=== PATIENT | female | born 1970 | race African-American/Black ===

== ENCOUNTER → 2018-12-21 | Day surgery (SDC) | payer OTHER ==
--- NOTE | 2018-12-20 10:49 | Diagnostic Imaging Report ---
EXAMINATION: CHEST 2 VIEWS INDICATION: Pre-operative COMPARISON: None FINDINGS: LINES/TUBES:Drainage catheter over the left upper quadrant. LUNGS:The lungs are well-inflated. No focal consolidation or pulmonary edema. PLEURA:No pleural effusion or pneumothorax. MEDIASTINUM:The cardiomediastinal silhouette appears normal in size and shape. BONES/SOFT TISSUES:No acute osseous injury. ABDOMEN:No free air under the diaphragm. IMPRESSION: No focal pneumonia or pulmonary edema. Signed by: Liliana Harman MD on 12/20/2018 10:45 AM
[2018-12-20 11:38] LABS: BASOPHILS # (AUTO) 0.1 (0.0-0.1); BASOPHILS % 0.9 % (0.0-1.0); EOSINOPHILS # (AUTO) 0.1 (0.0-0.4); EOSINOPHILS % 1.7 % (0.0-6.0); HEMATOCRIT 44.8 % (34.2-44.1); HEMOGLOBIN 14.6 g/dL (12.0-16.0); LYMPHOCYTES # (AUTO) 2.1 (1.0-3.2); MEAN CORPUSCULAR HEMOGLOBIN 29.4 pg (28-32); MEAN CORPUSCULAR HGB CONC 32.6 g/dL (31-35); MEAN CORPUSCULAR VOLUME 90.3 fL (81-99); MONOCYTES # (AUTO) 0.4 (0.2-0.8); MONOCYTES % 7.1 % (4.4-11.3); NEUTROPHILS # (AUTO) 3.1 (2.1-6.9); PLATELET COUNT 334 x10e3/uL (140-360); RED BLOOD COUNT 4.96 x10e6/uL (3.6-5.1); RED CELL DISTRIBUTION WIDTH 14.5 % (11.7-14.4)
[2018-12-20 11:57] LABS: ANION GAP 17.1 mmol/L (8-16); BLOOD UREA NITROGEN 12 mg/dL (7-26); BUN/CREATININE RATIO 14 (6-25); CALCIUM 10.2 mg/dL (8.4-10.2); CARBON DIOXIDE 24 mmol/L (22-29); CHLORIDE 101 mmol/L (98-107); CREATININE, SERUM 0.84 mg/dL (0.57-1.11); EST GLOMERULAR FILTRATION RATE > 60 ML/MIN (60-); GLUCOSE 77 mg/dL (74-118); POTASSIUM 4.1 mmol/L (3.5-5.1); SODIUM 138 mmol/L (136-145)
[~2018-12-21] MED LIST: BETAMETHASONE DISODIUM PHOS 6 MG/ML VIAL ONE; BUPIVACAINE HCL 0.5% 10ML MPF VIAL INJ ONE; BUPIVACAINE HCL 0.5% INJ 30 ML VIAL INJ ONE; CEFAZOLIN SOD 1 GM/NS 50ML 100 ML IV ONE; DEXAMETHASONE SOD PHOS INJ 4 MG/ML VIAL ONE; FENTANYL CITRATE/PF 100MCG/2 ML INJ ONE; GABAPENTIN300 MG PO; KETOROLAC TROMETHAMINE 30 MG/ML VIAL ONE; LIDOCAINE HCL 1% LOCAL INJ 20 ML VIAL ONE; LIDOCAINE HCL 2% LOCAL INJ 5 ML SDV VIAL INJ ONE; MEPERIDINE HCL INJ 25 MG/ML VIAL ONE; METHOCARBAMOL750 MG PO; MIDAZOLAM HCL 2 MG/2 ML VIAL ONE; ONDANSETRON HCL INJ 2MG/ML 2ML 2 MG/ML VIAL ONE; PROPOFOL IV EMULSION 10 MG/ML 20 ML VIAL ONE; SEVOFLURANE INHAL SOLN 250 ML PEN BTL ONE; TYLENOL WITH C1 EAC1 PO; ZOFRAN8 MG PO
--- OUTSIDE RECORDS SUMMARY | 2018-12-21 05:28 | XMS REPORT ---
Author Author [facility] Address Unknown Phone Unavailable Care Team Providers [facility] Hand Name Role Phone IVY CONN Unavailable Unavailable Problems This patient has no known problems. Allergies, Adverse Reactions, Alerts This patient has no known allergies or adverse reactions. Medications This patient has no known medications. Encounters Start Date/Time End Date/Time Encounter Type Admission Type Attending Clinicians Care Facility Care Department Encounter ID 2018-09-18 10:26:00 2018-09-18 10:26:[address] [facility] [id number] 2018-09-04 12:54:00 2018-09-04 12:54:[address] [facility] [id number] Results Test Description Test Time Test Comments Text Results Atomic Results Result Comments CHEST 2 VIEWS 2018-12-20 10:44:00 [place] [address] Patient Name: ODILIA HARDIN MR #: [id number] : 1970 Age/Sex: 48/F Req #: [id number] Adm Physician: Ordered by: IVY CONN DP Report #: [id number] Location: OR Room/Bed: Procedure: [id number] DX/CHEST 2 VIEWS Exam Date: 12/20/18 Exam Time: 1015 REPORT STATUS: Signed EXAMINATION: CHEST 2 VIEWS INDICATION: Pre-operative COMPARISON: None FINDINGS: LINES/TUBES:Drainage catheter over the left upper quadrant. LUNGS:The lungs are well-inflated. No focal consolidation or pulmonary edema. PLEURA:No pleural effusion or pneumothorax. MEDIASTINUM:The cardiomediastinal silhouette appears normal in size and shape. BONES/SOFT TISSUES:No acute osseous injury. ABDOMEN:No free air under the diaphragm. IMPRESSION: No focal pneumonia or pulmonary edema. Signed by: Erika Harman MD on 12/20/2018 10:45 AM Dictated By: ERIKA HARMAN MD 1045 Transcribed By: WINSOME on 12/20/18 1045 COPY TO: IVY CONN DPM
--- NOTE | 2018-12-21 10:23 | Diagnostic Imaging Report ---
EXAMINATION: FOOT RIGHT AP LAT INDICATION: Postoperative COMPARISON: None FINDINGS: There are postoperative findings involving the first 4 digits of the right foot with wire fixation of the proximal phalanx of the great toe and K wire fixation across the interphalangeal joints and MTP joints of the second through fourth digits. Overlying casting material is fine bony detail. No acute fracture. Alignment is near-anatomic. Nonspecific juxta-articular erosion at the head of the fifth metatarsal. IMPRESSION: Postoperative findings of the first through fourth digits of the right foot as above. Signed by: Liliana Harman MD on 12/21/2018 10:20 AM
[2018-12-21 10:50] VITALS: BP 129/86
--- NOTE | 2018-12-21 15:40 | Operative Report ---
DATE OF PROCEDURE: 12/21/2018 SURGEON: Christoph Argueta DPM PREOPERATIVE DIAGNOSES: 1. Painful hallux valgus deformity, right foot. 2. Painful contracted hammertoes, 2nd digit, right foot. 3. Painful contracted hammertoes, 3rd digit, right foot. 4. Painful contracted hammertoes, 4th digit, right foot. 5. Painful contracted hammertoes, 5th digit, right foot. 6. Painful Tailor's bunion, right foot. 7. Contracted extensor longus tendon, right foot. POSTOPERATIVE DIAGNOSIS: Confirmed. OPERATIVE PROCEDURE: 1. Silver bunionectomy, right foot. 2. Extensor longus tendon lengthening, right foot. 3. Arthroplasties of 2nd digit, right foot. 4. Arthroplasties of 3rd digit, right foot. 5. Arthroplasties of 4th digit, right foot. 6. Arthroplasties of 5th digit, right foot. 7. Tailor's bunionectomy, right foot. 8. Intraoperative use of fluoroscopy. 9. Trigger point shot of cortisone. 10. Application of posterior splint. ANESTHESIA: General. HEMOSTASIS: Pneumatic thigh tourniquet at 350 mmHg. PROCEDURE IN DETAIL: The patient was taken to the operating room and placed on the operating table in supine position. Following induction of general anesthesia by the anesthesiologist, Webril wraps were placed on the patient's right thigh followed by application of right thigh tourniquet. The right lower extremity was then prepped and draped in the usual aseptic manner. Following procedures were performed. Procedure #1: Silver bunionectomy, right foot. Attention was directed to the dorsomedial aspect of the 1st MPJ, where a 6 cm linear incision was performed. Incision was deepened down to the joint capsule. Transverse capsulotomy was performed, exposing the dorsomedial and dorsal exostosis of the 1st metatarsophalangeal joint. Via use of an oscillating saw and rotating bur, dorsal medial exostosis and dorsal exostosis were excised from the operation site in toto. The extensor longus tendon was noted to be severely contracted. Procedure #2: A Z-lengthening procedure was then performed to the extensor longus tendon to allow for proper dropping of the toe. The tendon was then lengthened approximately 1 cm and reapproximated utilizing 3-0 Vicryl in a simple interrupted type fashion. Procedures #3, #4, #5 and #6: Arthroplasties, 2nd, 3rd, 4th and 5th digits with K-wire fixation a 2nd through 4th. Attention was then directed to the dorsal aspect of the above-mentioned toes, where a 3 cm linear incision was performed, incision deepened down to the joint capsule. Transverse capsulotomy was then performed exposing the head of the proximal phalanx. Via the use of an oscillating saw, head of proximal phalanx were excised from the operation site in toto. All rough and bony edges were rasped smooth. The 2nd through 4th toes was still noted to be contracted, so a 0.045 K-wire was introduced crossing the metatarsophalangeal joint to achieve proper anatomical reduction. Procedure #7: Tailor's bunionectomy, right foot. Attention was then directed to the dorsal lateral aspect of the 5th metatarsophalangeal joint, where a 6 cm linear incision was performed, incision deepened down to joint capsule. Transverse capsulotomy was then performed exposing the dorsolateral exostosis of the 1st to 5th metatarsal head. Via the use of an oscillating saw, dorsal lateral exostosis was excised from the operation site in toto. All rough and bony edges were rasped smooth. Procedure #8: Intraoperative use of fluoroscopy was then used to make sure proper alignment fixation was achieved. Closure was then obtained utilizing 3-0 Vicryl, 4-0 Vicryl, and 4-0 nylon for capsule, subcutaneous tissue, and skin respectively. Procedure #9: Trigger point shot of cortisone was then given to the 1st and 4th interspace of the right foot. Then, approximately 15 mL of 0.5% plain Marcaine plus 10 mL of 1% Xylocaine plain plus 2 mL of Celestone Soluspan were then used to achieve local anesthesia of above-mentioned surgical area. Sterile dressing was applied. Upon release of thigh tourniquet, blood hyperemia was noted immediate to all digits patient's right foot. Procedure #10: Application of posterior splint. A properly placed posterior splint was then applied keeping the foot at 90 degrees with respect to the leg to try for any type of postop complications. The patient was then transferred from the OR to recovery room with vital signs stable and neurovascular status intact. No intraoperative complications were encountered. Blood loss from the surgery was minimal. The patient to remain nonweightbearing with the aid of crutches, keep her foot elevated and is to apply an ice pack to the ankle joint area. JAYESH Brumfield/BRANTL /[id number]
== END | disposition home or self-care (01) ==
LOC: OR 05:03
PROVIDERS: ATTEND Podiatrist Foot Surgery
DX: M20.11 Hallux valgus (acquired), right foot (principal); M20.41 Other hammer toe(s) (acquired), right foot; M21.621 Bunionette of right foot; M24.574 Contracture, right foot; E66.9 Obesity, unspecified; Z88.6 Allergy status to analgesic agent; Z01.810 Encounter for preprocedural cardiovascular examination; Z01.812 Encounter for preprocedural laboratory examination; Z01.818 Encounter for other preprocedural examination
CPT/HCPCS: 28110; 28208; 28285 ×4; 28292; 36415; 71046; 73620; 80048; 85025; 93005; J0690; J0720; J1100; J1885; J2001 ×2; J2175; J2250; J2405; J2704; J3010; C1713

== ENCOUNTER 2019-04-09 09:45 | Inpatient (IN) | payer OTHER ==
[2019-04-03 11:17] LABS: BASOPHILS % 0.4 % (0.0-1.0); EOSINOPHILS # (AUTO) 0.1 (0.0-0.4); EOSINOPHILS % 1.8 % (0.0-6.0); HEMATOCRIT 41.6 % (34.2-44.1); HEMOGLOBIN 13.4 g/dL (12.0-16.0); LYMPHOCYTES # (AUTO) 1.9 (1.0-3.2); LYMPHOCYTES % 33.9 % (18.0-39.1); MEAN CORPUSCULAR HEMOGLOBIN 28.6 pg (28-32); MEAN CORPUSCULAR HGB CONC 32.2 g/dL (31-35); MEAN CORPUSCULAR VOLUME 88.9 fL (81-99); MONOCYTES # (AUTO) 0.4 (0.2-0.8); MONOCYTES % 6.6 % (4.4-11.3); NEUTROPHILS # (AUTO) 3.2 (2.1-6.9); NEUTROPHILS % 57.1 % (38.7-80.0); PLATELET COUNT 365 x10e3/uL (140-360); RED BLOOD COUNT 4.68 x10e6/uL (3.6-5.1); RED CELL DISTRIBUTION WIDTH 14.8 % (11.7-14.4)
[~2019-04-09] VITALS: Ht 154.9 cm; Wt 91.6 kg
[~2019-04-09 09:45] MED LIST changes: +ACETAMINOPHEN 1000 MG/100 ML 100 ML IV ONE; -BETAMETHASONE DISODIUM PHOS 6 MG/ML VIAL ONE; -BUPIVACAINE HCL 0.5% 10ML MPF VIAL INJ ONE; -BUPIVACAINE HCL 0.5% INJ 30 ML VIAL INJ ONE; -CEFAZOLIN SOD 1 GM/NS 50ML 100 ML IV ONE; -DEXAMETHASONE SOD PHOS INJ 4 MG/ML VIAL ONE; -FENTANYL CITRATE/PF 100MCG/2 ML INJ ONE; -KETOROLAC TROMETHAMINE 30 MG/ML VIAL ONE; +LIDOCAINE HCL (LTA) 4 ML SOLN ONE; -LIDOCAINE HCL 1% LOCAL INJ 20 ML VIAL ONE; -LIDOCAINE HCL 2% LOCAL INJ 5 ML SDV VIAL INJ ONE; -MEPERIDINE HCL INJ 25 MG/ML VIAL ONE; -MIDAZOLAM HCL 2 MG/2 ML VIAL ONE; -ONDANSETRON HCL INJ 2MG/ML 2ML 2 MG/ML VIAL ONE; -PROPOFOL IV EMULSION 10 MG/ML 20 ML VIAL ONE; +SCOPOLAMINE 1.5 MG PATCH ONE; -SEVOFLURANE INHAL SOLN 250 ML PEN BTL ONE; +SUGAMMADEX SODIUM 200 MG/2 ML VIAL IV ONE
[2019-04-09] MEDS ORDERED: CEFAZOLIN SOD 1 GM/NS 50ML 100 ML IV ONE (10:00)
[2019-04-09] MEDS ORDERED: BUPIVACAINE 0.25% 30ML SDV INJ ONE (13:07)
[2019-04-09] MEDS ORDERED: SCOPOLAMINE 1.5 MG PATCH TOP SCH (14:30)
[2019-04-09] MEDS ORDERED: METOCLOPRAMIDE HCL 10 MG/2ML VIAL ONE (16:06)
[2019-04-09] MEDS ORDERED: ONDANSETRON HCL INJ 2MG/ML 2ML 2 MG/ML VIAL ONE ×2 (16:06→18:32)
[2019-04-09] MEDS ORDERED: LABETALOL HCL 20 ML ONE (16:06)
[2019-04-09] MEDS ORDERED: FENTANYL CITRATE/PF 100MCG/2 ML INJ ONE ×2 (16:23→18:44)
--- NOTE | 2019-04-09 17:37 | History and Physical ---
CHIEF COMPLAINT: "I have weight loss surgery." HISTORY OF PRESENT ILLNESS: This is a 48-year-old woman, who was admitted to [facility] with diagnosis of obesity, BMI of 37 that was complicating underlying hypertension. Today, the patient underwent successful laparoscopic gastric band removal with subsequent sleeve gastrectomy. The surgery was performed by her bariatric surgeon namely, Dr. Yahir Barker. The patient tolerated the surgery well. The patient currently voiced no complaints other than mild pain in the mid epigastric area. The patient denies any nausea or vomiting. REVIEW OF SYSTEMS: GENERAL: Weight is stable. No fever or chills. HEENT: No headaches. No visual changes. CARDIOVASCULAR/RESPIRATORY: No chest pain. No shortness of breath or cough. GI: Mild pain in the mid epigastric area, 5/10 in intensity. No nausea, vomiting, diarrhea, or constipation. : Pierre catheter removed. NEUROMUSCULAR: No limb weakness or numbness. PAST MEDICAL HISTORY: 1. Obesity, BMI of 37. 2. Hypertension. 3. Depression. 4. Arthritis. FAMILY HISTORY: Mother with hypertension and type 2 diabetes mellitus. PAST SURGICAL HISTORY: 1. Laparoscopic gastric band removal today. 2. Laparoscopic sleeve gastrectomy today. 3. Laparoscopic adjustable banding placement in 2009. 4. Tonsillectomy and adenoidectomy. 5. Right hand ganglion cyst resection. 6. Right carpal tunnel surgery. 7. Partial hysterectomy. ALLERGIES: CODEINE AND ASPIRIN. SOCIAL HISTORY: This woman lives with the family. She is employed as a nurse. No history of tobacco history. The patient drinks alcohol socially. MEDICATIONS: 1. Gabapentin 300 mg daily. 2. Duloxetine 60 mg daily. 3. Hydrocodone/acetaminophen 7.5/325 one b.i.d. p.r.n. pain. 4. Meloxicam 7.5 mg daily. 5. Robaxin 500 mg b.i.d. p.r.n. pain. 6. Naproxen 500 mg b.i.d. p.r.n. pain. 7. Ondansetron. 8. Pantoprazole 40 mg daily. PHYSICAL EXAMINATION: GENERAL: She is somnolent, but arousable. She is in no distress, very pleasant and cooperative. VITAL SIGNS: Height 5 feet 1 inch, weighs 202 pounds, BMI 38. Blood pressure is 158/103, pulse 76, respiratory rate 16, and oxygen saturation 99% on room air. She is afebrile. INTEGUMENT: Skin is warm and dry. No pallor, jaundice, or diaphoresis. HEENT: Anterior sclerae. Moist mucous membranes. NECK: Supple. CARDIOVASCULAR: Regular rate and rhythm with an S4 gallop. LUNGS: No rales. No rhonchi. No wheeze. ABDOMEN: Obese and benign. The laparoscopic incisions are clean, dry, and intact. No drainage or erythema is appreciated. EXTREMITIES: No edema of legs. The patient is wearing sequential compression devices. NEUROLOGIC: Intact. DIAGNOSES: 1. Obesity, BMI 38, complicated underlying hypertension. 2. Hypertensive heart disease. 3. Status post laparoscopic gastric band removal with subsequent sleeve gastrectomy. PLAN: 1. We will start enoxaparin this evening for deep venous thrombosis prophylaxis. 2. Resume home medications. 3. Mobilize patient. 4. Encourage incentive spirometer usage. 5. Intravenous fluids. 6. Monitor blood pressure. I would like to thank, Dr. Barker for involving me in the care of this patient. I spent 40 minutes in the care of this patient. MD JACKIE Lim/RACHEL /[id number]
[2019-04-09] MEDS: LACTATED RINGER'S 1,000 ML IV SCH ×2 (17:39→21:39)
--- NOTE | 2019-04-09 18:02 | Operative Report ---
DATE OF PROCEDURE: 04/09/2019 SURGEON: Yhair Barker MD PREOPERATIVE DIAGNOSES: 1. Morbid obesity, BMI of 38. 2. Hypertension. 3. Severe reflux disease. 4. Slipped lap band. 5. Status post lap band placed many years ago. POSTOPERATIVE DIAGNOSES: 1. Morbid obesity, BMI of 38. 2. Hypertension. 3. Severe reflux disease. 4. Slipped lap band. 5. Status post lap band placed many years ago. PREOPERATIVE INDICATION: 1. Treat disease, prevent complications of comorbid conditions of obesity. 2. Prevent complications related to slipped lap band. PROCEDURES: 1. Laparoscopic sleeve gastrectomy. 2. Laparoscopic removal of adjustable gastric band. ANESTHESIA: General. COMMERCIAL ILLUSTRATOR: Hank Juarez, certified surgical assistant (needed due to complexity of case). FLUIDS: 1 L of crystalloid. ESTIMATED BLOOD LOSS: 20 mL. DRAINS: None. COMPLICATIONS: None. SPECIMENS: 1. Lap band with port and catheter. 2. Partial stomach. GRAFTS: None. FINDINGS: 1. Severe adhesions from previous lap band placement. 2. Negative intraoperative EGD leak test. PROCEDURE IN DETAIL: The patient was brought to the operating room and was intubated under general endotracheal anesthesia. She was sterilely prepped and draped in the usual fashion. A preprocedure pause was performed identifying the patient, use of perioperative antibiotics, intended procedure, and staff surgeon. Access was gained to the peritoneal cavity via a 5 mm left subcostal incision using a Veress needle. Abdomen was insufflated to a pressure of 15 mmHg pressure. Four additional trocars were placed in the standard positions. The lap band was identified in the proximal portion of the stomach and was removed by cleaning off adhesions from anterior surface of the stomach and the posterior surface of the left lobe of the liver. The intraabdominal portion was removed and part of the catheter was cut in the intraabdominal portion, it was going to be removed with the subcutaneous port. Then the liver retractor was placed, more adhesiolysis required in order to clear the surface of the stomach. We then mobilized the greater curve of the stomach by lagging the gastric fully, short gastric, and posterior short gastric vessels using the [place] LigaSure device from about 3 cm proximal to the pyloric valve to the left fadia of the diaphragm. Once that was completed and adult-sized endoscope was inserted along the lesser curve of the stomach. The greater curvature of stomach was resected with multiple firings of a purple load 60 mm Covidien stapling device, which was reinforced with SeamGuard. Once that was done, we conducted intraoperative EGD leak test, no leaks were identified. The specimen was removed through the right periumbilical port site. The port site was closed with 0 Vicryl sutures using a Isaías Cheema technique in a [id number] fashion. We then verified hemostasis, removed the liver retractor, and desufflated the abdomen. We then removed the subcutaneous port along with the rest of the intraabdominal catheter. The deep port site was closed in multiple layers. The skin was closed with 4-0 Monocryl suture in a subcuticular fashion on the incision site. Dermabond dressings were applied. A 0.25% bupivacaine was used both at the preperitoneal incision sites. The patient tolerated the procedure well. Type of wound was type 2, clean, contaminated. All surgical sponges and counts were correct. Yahir Barker MD Paulino/BRANTL /[id number]
[2019-04-09] MEDS: ONDANSETRON HCL INJ 2MG/ML 2ML 2 MG/ML VIAL IV PRN (18:13)
[2019-04-09] MEDS: MORPHINE SULFATE 2 MG/ML SYR 1ML IV PRN ×2 (18:13→21:21)
[2019-04-09 18:14] VITALS: BP 150/102
[2019-04-09 18:18] VITALS: BP 150/102
[2019-04-09 18:19] VITALS: BP 150/102
[2019-04-09 18:24] VITALS: BP 150/102
[2019-04-09] MEDS ORDERED: SEVOFLURANE INHAL SOLN 250 ML PEN BTL ONE (18:32)
[2019-04-09] MEDS ORDERED: PROPOFOL IV EMULSION 10 MG/ML 20 ML VIAL ONE (18:32)
[2019-04-09] MEDS ORDERED: LIDOCAINE HCL 2% LOCAL INJ 5 ML SDV VIAL INJ ONE (18:32)
[2019-04-09] MEDS ORDERED: LIDOCAINE HCL 2% JELLY 5 ML TUBE ONE (18:32)
[2019-04-09] MEDS ORDERED: ROCURONIUM BROMIDE 10 MG/ML 5ML VIAL ONE (18:32)
[2019-04-09] MEDS ORDERED: DEXAMETHASONE SOD PHOS INJ 4 MG/ML VIAL ONE (18:32)
--- NOTE | 2019-04-09 18:42 | NUR ---
MD Crenshaw paged regarding BP of 150/102. New orders received at this time.
[2019-04-09] MEDS ORDERED: MIDAZOLAM HCL 2 MG/2 ML VIAL ONE (18:44)
--- NOTE | 2019-04-09 19:00 | NUR ---
RECEIVED PATIENT IN BEDSIDE REPORT. PATIENT RESTING IN BED AT THIS TIME. NO S&S OF DISTRESS NOTED. BED LOCKED IN LOWEST POSITION, SIDE RAILS UPX2, CALL LIGHT IN REACH.
[2019-04-09 20:00] VITALS: BP 191/102
[2019-04-09] MEDS: ENOXAPARIN SOD INJ 40 MG/0.4 ML SYR SC SCH (21:56)
[2019-04-10] VITALS (8 sets, daily range): BP systolic 154–191; BP diastolic 88–102
[2019-04-10] MEDS: ONDANSETRON HCL INJ 2MG/ML 2ML 2 MG/ML VIAL IV PRN ×5 (00:04→20:18)
[2019-04-10] MEDS: MORPHINE SULFATE 2 MG/ML SYR 1ML IV PRN ×2 (01:40→20:18)
[2019-04-10 05:56] LABS: BASOPHILS % 0.3 % (0.0-1.0); HEMOGLOBIN 13.2 g/dL (12.0-16.0); LYMPHOCYTES # (AUTO) 1.4 (1.0-3.2); LYMPHOCYTES % 11.9 % (18.0-39.1); MEAN CORPUSCULAR HEMOGLOBIN 28.9 pg (28-32); MEAN CORPUSCULAR HGB CONC 33.8 g/dL (31-35); MEAN CORPUSCULAR VOLUME 85.5 fL (81-99); MONOCYTES # (AUTO) 0.8 (0.2-0.8); MONOCYTES % 6.6 % (4.4-11.3); NEUTROPHILS # (AUTO) 9.2 (2.1-6.9); NEUTROPHILS % 80.8 % (38.7-80.0); PLATELET COUNT 434 x10e3/uL (140-360); RED BLOOD COUNT 4.56 x10e6/uL (3.6-5.1); RED CELL DISTRIBUTION WIDTH 14.6 % (11.7-14.4)
[2019-04-10 06:15] LABS: ALANINE AMINOTRANSFERASE 53 IU/L (0-55); ALBUMIN 3.4 g/dL (3.5-5.0); ALBUMIN/GLOBULIN RATIO 0.9 (0.8-2.0); ALKALINE PHOSPHATASE 68 IU/L (40-150); BLOOD UREA NITROGEN 7 mg/dL (7-26); BUN/CREATININE RATIO 10 (6-25); CALCIUM 9.4 mg/dL (8.4-10.2); CARBON DIOXIDE 25 mmol/L (22-29); CHLORIDE 100 mmol/L (98-107); CREATININE, SERUM 0.72 mg/dL (0.57-1.11); EST GLOMERULAR FILTRATION RATE > 60 ML/MIN (60-); GLUCOSE 140 mg/dL (74-118); MAGNESIUM 1.5 MG/DL (1.3-2.1); PHOSPHORUS 2.4 MG/DL (2.3-4.7); SODIUM 135 mmol/L (136-145)
--- NOTE | 2019-04-10 07:00 | NUR ---
RECEIVED PATIENT RESTING IN BED NO S/S OF DISTRESS. BED LOW, WHEELS LOCKED, SIDE RAILS X2. CALL LIGHT IN REACH WILL CONTINUE TO MONITOR PATIENT.
--- NOTE | 2019-04-10 07:59 | NUR ---
PROGRESS NOTE S: No major complaints O: AF,VSS General- no acute distress Abd- soft, incisions c/d/i A/P: POD 1, s/p Lap revision gastric band to lap sleeve gastrectomy -Clears, ambulate, IS, OOB to chair, dc home if doing well
[2019-04-10] MEDS: LACTATED RINGER'S 1,000 ML IV SCH ×3 (08:19→21:35)
[2019-04-10] MEDS: ENOXAPARIN SOD INJ 40 MG/0.4 ML SYR SC SCH ×2 (08:19→16:29)
--- NOTE | 2019-04-10 09:32 | Discharge Summary ---
ADMIT DIAGNOSES: 1. Obesity, BMI 38, complicating underlying hypertension. 2. Hypertension. 3. Gastroesophageal reflux disease. DISCHARGE DIAGNOSES: 1. Status post laparoscopic gastric band removal with subsequent laparoscopic sleeve gastrectomy. 2. Obesity. BMI 38, complicating underlying hypertension. 3. Hypertension. 4. Gastroesophageal reflux disease. HOSPITAL COURSE: This is a 48-year-old -Stateless woman, who was initially admitted to [facility] with diagnosis of morbid obesity, BMI 38, complicating underlying hypertension and severe reflux disease. She also had a diagnosis of slipped laparoscopic band on admission. During this hospitalization, she underwent successful laparoscopic removal of adjustable gastric band as well as sleeve gastrectomy. The surgery was performed by Dr. Yahir Barker. Her brief hospitalization was unremarkable. On discharge, she was tolerating clear liquid diet. She stayed one extra night for control of her nausea. DISCHARGE MEDICATIONS: 1. Tramadol 50 mg one pill every 4 hours p.r.n. pain, 30 prescribed, no refills. 2. Ondansetron 4 mg one pill every 6 hours p.r.n. nausea, 20 prescribed, no refills. 3. Acetaminophen with codeine one pill daily as needed for severe pain. 4. Methocarbamol 750 mg b.i.d. p.r.n. arthritic pain. 5. Omeprazole 40 mg one pill every morning. FOLLOWUP INSTRUCTION: The patient instructed to follow up with Dr. Yahir Barker in 1 week and with primary care physician within 2 weeks. MD JACKIE Lim/RACHEL /[id number] cc: Yahir Barker MD MTDD
[2019-04-10] MEDS: HYDROCODONE/APAP 7.5MG-325MG 1 EA TAB PO PRN ×2 (09:52→17:16)
--- NOTE | 2019-04-10 10:26 | NUR ---
Nutrition Screen Note RD Recommendation for Physician: - ADAT to full liquids per MD Plan of Care: RD following, monitoring for tolerance and adequacy - Diet education provided 04/10 Nutrition reason for involvement: MD Consult- gastric bypass post op diet education Primary Diagnose(s): gastric bypass surgery- laparoscopic sleeve gastrectomy PMH: obesity, HTN, arthritis, gastric lap band 2010 Ht: 61 in Wt: 202 lb BMI: 38.2 kg/m2 IBW: [address] Assessment: (04/10) 48 YOF admitted for lap band removal and laparoscopic sleeve gastrectomy, pt POD#1. Pt seen today per MD consult for diet education. Pt receptive to diet education at time of visit, discussed progression of diet, recommended supplements, and vitamin and mineral supplementation. All questions and concerns addressed at time of visit. Chart reviewed. Labs and meds reviewed. Will continue to monitor. Current Diet: Bariatric clear liquids Malnutrition Evaluation (04/10/19) The patient does not meet criteria for a specified degree of malnutrition at this time. Will re-evaluate at follow-up as appropriate. Diet Education Needs Assessment: Diet education indicated, pt receptive and diet education provided 04/10. Learner(s): pt Barriers: none Cultural/Language Modifications: none Readiness: ready Method: handouts, discussion Topics: post op gastric bypass diet progression, protein supplementation, vitamin and mineral supplementation Understanding/Compliance: good Diet tolerance: tolerating CL diet Nutrition Care Level: Low Signed: Migdalia Schultz RD, LD, [facility]
--- NOTE | 2019-04-10 11:53 | NUR ---
PATIENT COMPLAINT OF NAUSEA. ZOFRAN IV GIVEN. WILL REASSESS PATIENT.
[2019-04-10] MEDS ORDERED: ULTRAM50 MG PO (12:25)
[2019-04-10] MEDS ORDERED: ZOFRAN4 MG PO (12:26)
[2019-04-10] MEDS ORDERED: OMEPRAZOLE40 MG PO (12:28)
--- NOTE | 2019-04-10 13:15 | NUR ---
PATIENT STATES SHE "FEELS BETTER". TOLERATED SIPS OF CLEAR LIQUIDS FOR LUNCH. NO NAUSEA AT THIS TIME.
--- NOTE | 2019-04-10 13:55 | NUR ---
Visit made by the Spiritual Care Department Pastoral Visitor, Janna Deluca. PV provided pastoral presence, prayer, hospitality, and supportive listening. Pastoral Visitor informed pt/family of the scope of Surgical Orderly Services and availability. ABEBE FERRER Hooker Inspector Spiritual Care Department O: [phone] Pager: [phone] ([phone] number calling from)
[2019-04-10] MEDS ORDERED: CLONIDINE HCL 0.1 MG TAB PO NR (16:00)
--- NOTE | 2019-04-10 19:00 | NUR ---
Walking rounds done and report received. Patient is awake, alert and able to make needs known. She states nausea is better, instructed to call for assistance as needed. Bed in lowest position, locked and call mills within reach.
[2019-04-11] VITALS: BP 168/92
[2019-04-11] MEDS: HYDROCODONE/APAP 7.5MG-325MG 1 EA TAB PO PRN ×3 (01:09→09:44)
[2019-04-11] MEDS: LACTATED RINGER'S 1,000 ML IV SCH (01:43)
[2019-04-11 04:00] VITALS: BP 158/94
[2019-04-11 05:42] LABS: BASOPHILS % 0.5 % (0.0-1.0); EOSINOPHILS # (AUTO) 0.1 (0.0-0.4); EOSINOPHILS % 0.6 % (0.0-6.0); HEMATOCRIT 39.1 % (34.2-44.1); HEMOGLOBIN 13.2 g/dL (12.0-16.0); LYMPHOCYTES # (AUTO) 1.7 (1.0-3.2); LYMPHOCYTES % 20.1 % (18.0-39.1); MEAN CORPUSCULAR HEMOGLOBIN 28.9 pg (28-32); MEAN CORPUSCULAR HGB CONC 33.8 g/dL (31-35); MEAN CORPUSCULAR VOLUME 85.7 fL (81-99); MONOCYTES # (AUTO) 0.8 (0.2-0.8); MONOCYTES % 9.5 % (4.4-11.3); NEUTROPHILS # (AUTO) 5.9 (2.1-6.9); PLATELET COUNT 434 x10e3/uL (140-360); RED BLOOD COUNT 4.56 x10e6/uL (3.6-5.1); RED CELL DISTRIBUTION WIDTH 14.8 % (11.7-14.4)
[2019-04-11 06:03] LABS: ALANINE AMINOTRANSFERASE 36 IU/L (0-55); ALBUMIN 3.3 g/dL (3.5-5.0); ALBUMIN/GLOBULIN RATIO 0.9 (0.8-2.0); ALKALINE PHOSPHATASE 68 IU/L (40-150); ANION GAP 13.7 mmol/L (8-16); BLOOD UREA NITROGEN 6 mg/dL (7-26); BUN/CREATININE RATIO 7 (6-25); CALCIUM 9.4 mg/dL (8.4-10.2); CARBON DIOXIDE 26 mmol/L (22-29); CHLORIDE 98 mmol/L (98-107); CREATININE, SERUM 0.81 mg/dL (0.57-1.11); EST GLOMERULAR FILTRATION RATE > 60 ML/MIN (60-); GLUCOSE 104 mg/dL (74-118); POTASSIUM 3.7 mmol/L (3.5-5.1); SODIUM 134 mmol/L (136-145)
--- NOTE | 2019-04-11 07:00 | NUR ---
Report given and walking rounds done. Call mills within reach. Patient without any complaints voiced.
[2019-04-11 07:39] VITALS: BP 154/96
[2019-04-11] MEDS: ENOXAPARIN SOD INJ 40 MG/0.4 ML SYR SC SCH (08:11)
--- NOTE | 2019-04-11 11:03 | NUR ---
PATIENT CONTINUING TO WAIT FOR DAUGHTER TO ARRIVE TO PICK HER UP.
[2019-04-11 11:30] VITALS: BP 163/97
--- NOTE | 2019-04-11 12:40 | NUR ---
IV REMOVED AT THIS TIME WITHOUT COMPLICATION. PATIENT DAUGHTER IS PRESENT AT BEDSIDE.
--- NOTE | 2019-04-11 13:04 | NUR ---
DISCHARGE INSTRUCTIONS GIVEN TO PATIENT. FOLLOWUP INSTRUCTIONS PROVIDED. PRESCRIPTIONS GIVEN TO PATIENT AND COPY MADE FOR CHART. PT HAS GATHERED ALL BELONGINGS AND GIVEN TO DAUGHTER. PATIENTS DAUGHTER TO DRIVE PATIENT HOME. PATIENT TAKEN BY WHEELCHAIR TO FRONT BY RN.
== END 2019-04-11 13:01 | disposition home or self-care (01) | DRG 620 ==
LOC: OR 09:45 → OBSVTOIN 17:00 → PACU V 17:00 → MED/SURG 17:16
PROVIDERS: ADMIT Internal Medicine; ATTEND Internal Medicine
PROC: 0DP64CZ Removal of Extraluminal Device from Stomach, Percutaneous Endoscopic Approach (ICD-10-PCS; 2019-04-09)
PROC: 0DB64Z3 Excision of Stomach, Percutaneous Endoscopic Approach, Vertical (ICD-10-PCS; principal; 2019-04-09 11:30)
DX: E66.01 Morbid (severe) obesity due to excess calories (principal); T85.528A Displacement of other gastrointestinal prosthetic devices, implants and grafts, initial encounter; K21.9 Gastro-esophageal reflux disease without esophagitis; I11.9 Hypertensive heart disease without heart failure; F32.9 Major depressive disorder, single episode, unspecified; M19.90 Unspecified osteoarthritis, unspecified site; Z88.6 Allergy status to analgesic agent; Z88.5 Allergy status to narcotic agent; Z98.84 Bariatric surgery status; Z68.38 Body mass index [BMI] 38.0-38.9, adult
CPT/HCPCS: 36415; 80053; 83735; 84100; 85025; 93005; J0690; J1100; J1650; J2001; J2250; J2270; J2405; J2765; J3010; J7121